=== PATIENT | male | born 1970 | race Caucasian/White ===

== ENCOUNTER 2022-09-09 21:07 | Emergency (ER) | payer BC ==
[~2022-09-09] VITALS: Ht 180.3 cm; Wt 111.1 kg
--- NOTE | 2022-09-09 21:08 | NUR ---
Triaged and placed patient to ER bed 7 for evaluation. Report given to Fitz DORAN for continuity of care. Bed placed in lowest position with side rails up. Instructed to notify ED staff for any changes in condition or worsening of symptoms while waiting to be seen by a provider. Patient verbalized understanding.
[2022-09-09 21:10] VITALS: BP_SYST 139
--- NOTE | 2022-09-09 21:16 | NUR ---
Dr. Blank at bedside examining the patient.
--- NOTE | 2022-09-09 21:26 | NUR ---
Portable x-ray done at bedside.
[2022-09-09] MEDS ORDERED: KETOROLAC TROMETHAMINE 60 MG/2 ML VIAL IM ONE (21:30)
[2022-09-09] MEDS ORDERED: HYDR-3917 PO (21:43)
[2022-09-09] MEDS ORDERED: IBUP-1971 PO (21:43)
[2022-09-09] MEDS ORDERED: IBUPROFEN 800 MG TABLET PO ONE (21:45)
[2022-09-09] MEDS ORDERED: HYDROcodone/ACETAMIN 10-325 MG TAB PO ONE (21:45)
--- NOTE | 2022-09-09 22:00 | NUR ---
Patient given written and verbal discharge instructions and verbalizes understanding. ER MD discussed with patient the results and treatment provided. Patient in stable condition. ID arm band removed. Rx of NORCO, MOTRIN given. Patient educated on pain management and to follow up with PMD. Pain Scale . Opportunity for questions provided and answered. Medication side effect fact sheet provided.
[2022-09-09 22:01] VITALS: BP_SYST 131
== END 2022-09-09 22:00 | disposition home or self-care (01) ==
LOC: SED 21:07
DX: S82.492A Other fracture of shaft of left fibula, initial encounter for closed fracture (principal); Z79.899 Other long term (current) drug therapy; W21.09XA Struck by other hit or thrown ball, initial encounter; Y93.73 Activity, racquet and hand sports; Y92.89 Other specified places as the place of occurrence of the external cause; Y99.8 Other external cause status
CPT/HCPCS: 99284; 29515; 73610; 73620; 96372; J1885